=== PATIENT | female | born 1965 | race Two or more races ===

== ENCOUNTER 2018-02-19 15:55 | Inpatient (IN) | payer MEDICAID ==
[~2018-02-19] VITALS: Ht 152.4 cm; Wt 62.0 kg
[2018-02-19] MEDS ORDERED: SODIUM CHLORIDE 0.9% 500 ML IV ONE (16:00)
[2018-02-19 16:41] LABS: Eosinophils # (auto) 0 uL; Neutrophils # (auto) 3.9 uL
[2018-02-19 16:43] LABS: Basophils # (auto) 0.1 uL; Basophils % (auto) 1.1 % (0.0-2.0); Eosinophils % (auto) 0.4 % (0.0-7.0); Hematocrit 36.2 % (36.0-46.0); Hemoglobin 12.1 g/dL (12.2-16.2); Lymphocytes # (auto) 0.6 uL; Lymphocytes % (auto) 12.5 % (10.0-50.0); Mean Corpuscular Hemoglobin 34.3 pg (28.0-32.0); Mean Corpuscular Hgb Conc. 33.4 g/dL (32.0-36.0); Mean Corpuscular Volume 102.8 fL (80.0-100.0); Monocytes # (auto) 0.3 uL; Monocytes % (auto) 6.8 % (0.0-12.0); Neutrophils % (auto) 79.2 % (37.0-80.0); Platelet Count (auto) 244 10^3/uL (140-450); Red Blood Cells 3.52 10^6/uL (4.0-5.20); Red Cell Distribution Width 14.2 % (11.8-14.3)
[2018-02-19 16:58] LABS: Anion Gap 8 (5-15); Blood Urea Nitrogen 23 mg/dL (7-18); Calcium 8.4 mg/dL (8.5-10.1); Carbon Dioxide 27 mmol/L (21-32); Chloride 105 mmol/L (98-107); Potassium 4.1 mmol/L (3.5-5.1); Sodium 140 mmol/L (136-145)
[2018-02-19 17:01] LABS: Alanine Aminotransferase 18 U/L (13-56); Aspartate Aminotransferase 22 U/L (15-37); GFR African American 82 mL/min; GFR Non-African American 68 mL/min
[2018-02-19 17:06] LABS: Alkaline Phosphatase 73 U/L (45-117); Bilirubin, Total 0.2 mg/dL (0.2-1.0); Total Protein 7.8 g/dL (6.4-8.2)
[2018-02-19 17:11] LABS: Glucose 43 mg/dL (74-106)
[2018-02-19] MEDS ORDERED: D5W 5% 1,000 ML IV ONE (17:30)
[2018-02-19] MEDS ORDERED: DEXTROSE 50% SYRINGE 50 ML IV ONE (17:34)
[2018-02-19] MEDS ORDERED: DEXTROSE (50%) 50ML SYRG IV ONE (17:34)
[2018-02-19] MEDS ORDERED: HYDROcodone-ACET 5/325MG TAB PO PRN (19:15)
[2018-02-19] MEDS ORDERED: TEMAZEPAM 15 MG CAP PO PRN (19:15)
[2018-02-19] MEDS ORDERED: LACTULOSE 20Gm/30ML SOLN PO PRN (19:15)
[2018-02-19] MEDS ORDERED: MORPHINE SULFATE 8mg/ml INJ SDV IV PRN ×2 (19:15)
[2018-02-19] MEDS ORDERED: DEXTROSE (50%) 50ML SYRG IV PRN (19:15)
[2018-02-19] MEDS ORDERED: ACETAMINOPHEN 500 MG TAB PO PRN (19:15)
[2018-02-19] MEDS ORDERED: NITROGLYCERIN 0.4 MG SL TAB SL PRN (19:15)
[2018-02-19] MEDS ORDERED: LORazepam 0.5 MG TAB PO PRN (19:15)
[2018-02-19] MEDS ORDERED: PROMETHAZINE HCL 25 MG/ML 1ML IV PRN (19:15)
[2018-02-19] MEDS: ACCU-CHEK COMFORT CURVE STRIP VI SCH (19:44)
[2018-02-19] MEDS ORDERED: GASTROGRAFIN 30 ML SOL ONE (20:49)
[2018-02-19 21:20] VITALS: BP 130/63
[2018-02-20] VITALS (7 sets, daily range): BP systolic 88–127; BP diastolic 49–63
[2018-02-20] MEDS ORDERED: IBUP800T24 PO (00:16)
[2018-02-20] MEDS: ACCU-CHEK COMFORT CURVE STRIP VI SCH ×6 (00:20→20:18)
[2018-02-20 07:33] LABS: Cholesterol 170 mg/dL (< 200); HDL Cholesterol 57 mg/dL (40-59); LDL Cholesterol 93 mg/dL (< 100); Triglycerides 150 mg/dL (< 150)
[2018-02-20] MEDS: ENOXAPARIN SOD 40 MG/0.4 ML SYRINGE SC SCH (10:43)
[2018-02-20] MEDS ORDERED: GASTROGRAFIN 30 ML SOL ONE (11:19)
[2018-02-20] MEDS ORDERED: IOHEXOL 300 MG/ML 100ML BOTTLE IJ ONE (13:51)
[2018-02-21] MEDS: ACCU-CHEK COMFORT CURVE STRIP VI SCH ×6 (00:08→21:30)
[2018-02-21 05:00] VITALS: BP 81/54
[2018-02-21 08:00] VITALS: BP 93/56
[2018-02-21 09:00] VITALS: BP 93/56
[2018-02-21] MEDS: ENOXAPARIN SOD 40 MG/0.4 ML SYRINGE SC SCH (09:33)
[2018-02-21 09:47] LABS: Urine Bacteria FEW /hpf (None Seen); Urine Blood Negative /uL (Negative); Urine Specific Gravity 1.008 (1.001-1.035); Urine WBC 1 /hpf (0 - 5)
[2018-02-21 13:00] VITALS: BP 102/50
[2018-02-21 13:04] LABS: BUN/Creatinine Ratio 20.2; Calcium 9.3 mg/dL (8.5-10.1); Potassium 4.3 mmol/L (3.5-5.1)
[2018-02-21] MEDS ORDERED: AZITHROMYCIN 500MG/ 250ML 250 ML IV ONE (13:45)
[2018-02-21] MEDS ORDERED: cefTRIAXone 1GM/10ml IVPUSH 10 ML IV ONE (13:45)
[2018-02-21] MEDS: SODIUM CHLORIDE 0.9% 1,000 ML IV SCH (15:02)
[2018-02-21 17:00] VITALS: BP 98/57
[2018-02-21] MEDS ORDERED: ACCU-CHEK COMFORT CURVE STRIP VI SCH (17:00)
[2018-02-21 22:00] VITALS: BP 90/44
[2018-02-22 05:53] VITALS: BP 90/54
[2018-02-22 06:15] LABS: Basophils # (auto) 0 uL; Basophils % (auto) 1.1 % (0.0-2.0); Eosinophils # (auto) 0 uL; Eosinophils % (auto) 0.7 % (0.0-7.0); Hematocrit 35.3 % (36.0-46.0); Hemoglobin 11.8 g/dL (12.2-16.2); Lymphocytes # (auto) 0.8 uL; Lymphocytes % (auto) 18.3 % (10.0-50.0); Mean Corpuscular Hemoglobin 33.9 pg (28.0-32.0); Mean Corpuscular Hgb Conc. 33.4 g/dL (32.0-36.0); Mean Corpuscular Volume 101.6 fL (80.0-100.0); Monocytes # (auto) 0.4 uL; Monocytes % (auto) 8.4 % (0.0-12.0); Neutrophils % (auto) 71.5 % (37.0-80.0); Nucleated Red Blood Cells % 0.1 %; Platelet Count (auto) 233 10^3/uL (140-450); Red Blood Cells 3.48 10^6/uL (4.0-5.20); Red Cell Distribution Width 14.1 % (11.8-14.3); White Blood Cell 4.2 10^3/uL (4.4-10.8)
[2018-02-22] MEDS: SODIUM CHLORIDE 0.9% 1,000 ML IV SCH (06:24)
[2018-02-22] MEDS: ACCU-CHEK COMFORT CURVE STRIP VI SCH ×4 (06:24→21:56)
[2018-02-22 06:36] LABS: BUN/Creatinine Ratio 27.1; Calcium 8.5 mg/dL (8.5-10.1); Magnesium 2.4 mg/dL (1.6-2.6)
[2018-02-22 07:41] VITALS: BP 106/55
[2018-02-22 08:00] VITALS: BP 106/55
[2018-02-22] MEDS: cefTRIAXone 1GM/10ml IVPUSH 10 ML IV SCH (08:47)
[2018-02-22 09:20] VITALS: BP 106/55
[2018-02-22] MEDS: ENOXAPARIN SOD 40 MG/0.4 ML SYRINGE SC SCH (10:58)
[2018-02-22] MEDS: AZITHROMYCIN 500MG/ 250ML 250 ML IV SCH (10:59)
[2018-02-22 12:38] VITALS: BP 116/57
[2018-02-22 17:00] VITALS: BP 91/53
[2018-02-23 05:02] VITALS: BP 106/59
[2018-02-23] MEDS: SODIUM CHLORIDE 0.9% 1,000 ML IV SCH (05:20)
[2018-02-23] MEDS: ACCU-CHEK COMFORT CURVE STRIP VI SCH ×2 (06:52→11:24)
[2018-02-23 09:00] VITALS: BP 93/55
[2018-02-23] MEDS: AZITHROMYCIN 500MG/ 250ML 250 ML IV SCH (09:21)
[2018-02-23] MEDS: ENOXAPARIN SOD 40 MG/0.4 ML SYRINGE SC SCH (09:21)
[2018-02-23] MEDS: cefTRIAXone 1GM/10ml IVPUSH 10 ML IV SCH (09:21)
[2018-02-23 12:20] VITALS: BP 98/59
== END 2018-02-23 13:30 | disposition home or self-care (01) | DRG 720 ==
LOC: EDBD 15:55 → ER 15:56 → TELE 15:57 → TELE-EAST 21:20
PROVIDERS: ADMIT Internal Medicine; ATTEND Internal Medicine
DX: A41.9 Sepsis, unspecified organism (principal); N17.0 Acute kidney failure with tubular necrosis; G93.41 Metabolic encephalopathy; E11.649 Type 2 diabetes mellitus with hypoglycemia without coma; J18.9 Pneumonia, unspecified organism; Q90.9 Down syndrome, unspecified; N39.0 Urinary tract infection, site not specified; D37.8 Neoplasm of uncertain behavior of other specified digestive organs; E44.1 Mild protein-calorie malnutrition; Z83.3 Family history of diabetes mellitus; Z68.26 Body mass index [BMI] 26.0-26.9, adult
CPT/HCPCS: 36415; 70450; 71045; 71260; 73060; 74177; 78306; 80048; 80053; 80061; 81001; 82962; 83036; 83525; 83735; 84484; 85025; 85652; 87040; 87086; 87088; 87186; 93005; 96361; 96372; 96374; J7042

== ENCOUNTER 2022-09-08 21:24 | Emergency (ER) | payer MEDICAID ==
[~2022-09-08] VITALS: Ht 144.8 cm; Wt 110.0 kg
[~2022-09-08 21:24] MED LIST: IBUP800T27 PO
[2022-09-09] MEDS ORDERED: MORPHINE SULFATE 4 MG/ML SYR/VIAL IV ONE (01:00)
[2022-09-09] MEDS ORDERED: ONDANSETRON HCL 4 MG/2 ML VIAL IV ONE (01:00)
[2022-09-09 01:46] LABS: Albumin 3.1 g/dL (3.4-5.0); BUN/Creatinine Ratio 27.7; Calcium 8.6 mg/dL (8.5-10.1); Magnesium 2.3 mg/dL (1.6-2.6); Potassium 4.6 mmol/L (3.5-5.1)
[2022-09-09 01:49] LABS: Bilirubin, Total 0.4 mg/dL (0.2-1.0); Eosinophils # (auto) 0 10 ^3/uL (0-0.8); Hemoglobin 10.9 g/dL (12.2-16.2); Lymphocytes # (auto) 0.9 10 ^3/uL (0.4-5.4); Mean Corpuscular Hemoglobin 33.9 pg (28.0-32.0); Monocytes # (auto) 0.4 10 ^3/uL (0-1.3); Total Protein 7.4 g/dL (6.4-8.2); White Blood Cell 4.1 10^3/uL (4.4-10.8)
[2022-09-09 01:51] LABS: Basophils # (auto) 0 10 ^3/uL (0-0.2); Basophils % (auto) 1.1 % (0.0-2.0); Eosinophils % (auto) 0.6 % (0.0-7.0); Hematocrit 32.9 % (36.0-46.0); Lymphocytes % (auto) 22.9 % (10.0-50.0); Mean Corpuscular Hgb Conc. 33.3 g/dL (32.0-36.0); Mean Corpuscular Volume 101.8 fL (80.0-100.0); Monocytes % (auto) 9.1 % (0.0-12.0); Neutrophils # (auto) 2.7 10 ^3/uL (1.6-8.6); Neutrophils % (auto) 66.3 % (37.0-80.0); Red Blood Cells 3.23 10^6/uL (4.0-5.20); Red Cell Distribution Width 14.3 % (11.8-14.3)
[2022-09-09 02:28] LABS: Urine Bacteria NONE SEEN /hpf (None Seen); Urine Blood Negative /uL (Negative); Urine Mucus FEW (None Seen); Urine Specific Gravity 1.024 (1.001-1.035); Urine WBC 3 /hpf (0 - 5)
[2022-09-09 06:45] VITALS: BP 124/61
== END 2022-09-09 07:02 | disposition home or self-care (01) ==
LOC: ER 21:25
DX: K43.9 Ventral hernia without obstruction or gangrene (principal); R10.13 Epigastric pain; D75.89 Other specified diseases of blood and blood-forming organs; D72.819 Decreased white blood cell count, unspecified; Q90.9 Down syndrome, unspecified; E11.9 Type 2 diabetes mellitus without complications; Z90.49 Acquired absence of other specified parts of digestive tract
CPT/HCPCS: 36415; 74177; 80053; 81001; 83605; 83690; 83735; 84484; 85025; 93005

== ENCOUNTER 2024-09-28 17:26 | Inpatient (IN) | payer MEDICAID ==
[~2024-09-28] VITALS: Ht 142.2 cm; Wt 56.7 kg
[~2024-09-28 17:26] MED LIST changes: +ALEN70TA74 PO; +CEPH500C PO; +IBUP-1456 PO; -IBUP800T27 PO; +LORA-622 PO; +QUET25TA37 PO
--- NOTE | 2024-09-28 19:44 | ED.PDOC ---
History of Present Illness HPI Comments 58-year-old female who comes in with chief complaint of a UTI and possible sepsis. The patient was recently diagnosed with a UTI but she was not able to get the medications. Today, the patient had a telemedicine visit and was told because her heart rate was somewhat elevated that 911 should be called. The nicolasa serrato was transported to our facility and had stable vital signs upon arrival. According to the family, they just picked up the medication for the UTI today. There has been no fever or chills. The patient has a history of Down syndrome and is not communicative Chief Complaint: Abnormal LAB's Time Seen by MD: 17:28 Primary Care Provider: UNKNOWN Reviewed Notes: Nurses Notes, Supervisor Core Shop Notes, Medications, Allergies (No allergies to medications) Allergies: Coded Allergies: NO KNOWN ALLERGIES (Unverified , 01/07/10) Home Meds Reported Medications Ibuprofen (Ibuprofen) 800 Mg Tab, 800 MG PO, MG 02/20/18 Information Source: Relative, Emergency Med Personnel Mode of Arrival: EMS Severity: Moderate Timing: Hours Duration: Since onset Prehospital treatment: None Associated signs and symptoms Possible sepsis Past Medical History PAST MEDICAL HISTORY: Dementia, DM, Thyroid Past Medical History (Other): Down syndrome, abdominal hernia Surgical History: Cholecystectomy, Hernia Repair INFORMIX DEVELOPER History: No Pertinent INFORMIX DEVELOPER History Family History Family History: Family hx of DM, Family hx of heart sana Social History Smoker: Non-Smoker Alcohol: Denies ETOH Use Drugs: Denies Drug Use Lives In: Home Constitutional: reports: weakness; denies: chills, diaphoresis, fatigue, fever, malaise, sweats, others EENTM: denies: blurred vision, double vision, ear bleeding, ear discharge, ear drainage, ear pain, ear ringing, eye pain, eye redness, hearing loss, mouth pa in, mouth swelling, nasal discharge, nose bleeding, nose congestion, nose pain, photophobia, tearing, throat pain, throat swelling, voice changes, others Respiratory: denies: cough, hemoptysis, orthopnea, SOB at rest, shortness of breath, SOB with excertion, stridor, wheezing, others Cardiovascular: denies: chest pain, dizzy spells, diaphoresis, Dyspnea on exertion, edema, irregular heart beat, left arm pain, lightheadedness, palpitations, PND, syncope, others Gastrointestinal: denies: abdomen distended, abdominal pain, blood streaked bowels, constipated, diarrhea, dysphagia, difficulty swallowing, hematemesis, melena, nausea, poor appetite, poor fluid intake, rectal bleeding, rectal pain, vomiting, others Genitourinary: denies: abnormal vagina bleeding, burning, dyspareunia, dysuria, flank pain, frequency, hematuria, incontinence, pain, , vagina discharge, urgency, others Neurological: denies: dizziness, fainting, headache, left sided numbness, left sided weakness, numbness, paresthesia, pre-existing deficit, right sided numbness, right sided weakness, seizure, speech problems, tingling, tremors, weakness, others Musculoskeletal: denies: back pain, gout, joint pain, joint swelling, muscle pain, muscle stiffness, neck pain, others Integumetry: denies: bruises, change in color, change in hair/nails, dryness, laceration, lesions, lumps, rash, wounds, others Allergic/Immunocompromised: denies: Difficulty Healing, Frequent Infections, Hives, Itching, others Hematologic/Lymphatic: denies: anemia, blood clots, easy bleeding, easy bruising, swollen glands, others Endocrine: denies: excessive hunger, excessive sweating, excessive thirst, excessive urination, flushing, intolerance to cold, intolerance to heat, unexplained weight gain, unexplained weight loss, others Psychiatric: denies: anxiety, bipolar disorder, depression, hopeless, panic disorder, schizophrenia, sleepless, suicidal, others Physical Exam General Appearance: Moderate Distress HEENT: Normal ENT Inspection, Pharynx Normal, TMs Normal Neck: Full Range of Motion, Non-Tender, Normal, Normal Inspection Respiratory: Chest Non-Tender, Lungs Clear, No Accessory Muscle Use, No Respiratory Distress, Normal Breath Sounds Cardiovascular: No Edema, No JVD, No Murmur, No Gallop, Normal Peripheral Pulses, Regular Rate/Rhythm Breast Exam: Deferred Gastrointestinal: No Organomegaly, Non Tender, No Pulsatile Mass, Normal Bowel Sounds, Soft Genitalia: Deferred Pelvic: Deferred Rectal: Deferred Extremities: No calf tenderness, Normal capillary refill, Normal inspection, Normal range of motion, Non-tender, No pedal edema Musculoskeletal : Apperance: Normal Neurologic: extrusion die template maker II-XII nml as Tested, Motor Weakness, Normal Affect, Normal Mood, No Sensory Deficits Cerebellar Function: Unable to Test Reflexes: Normal Skin: Dry, Normal Color, Warm Lymphatic: No Adenopathy Was a procedure done? Was a procedure done?: No Differential Dx Considerations may include: Sepsis, UTI, generalized weakness X-Ray, Labs, Meds, VS Vital Signs Date Time Temp Pulse Resp B/P (MAP) Pulse Ox O2 Delivery O2 Flow Rate FiO2 09/28/24 18:33 98.2 70 16 110/58 (75) 96 Lab Test 09/28/24 19:30 Range/Units White Blood Count 8.4 4.4-10.8 10^3/uL Red Blood Count 3.24 L 4.0-5.20 10^6/uL Hemoglobin 10.2 L 12.2-16.2 g/dL Hematocrit 31.0 L 36.0-46.0 % Mean Corpuscular Volume 95.6 80.0-100.0 fL Mean Corpuscular Hemoglobin 31.4 28.0-32.0 pg Mean Corpuscular Hemoglobin Concent 32.9 32.0-36.0 g/dL Red Cell Distribution Width 18.8 H 11.8-14.3 % Platelet Count 372 140-450 10^3/uL Mean Platelet Volume 8.4 6.9-10.8 fL Neutrophils (%) (Auto) 80.1 H 37.0-80.0 % Lymphocytes (%) (Auto) 13.9 10.0-50.0 % Monocytes (%) (Auto) 5.3 0.0-12.0 % Eosinophils (%) (Auto) 0.1 0.0-7.0 % Basophils (%) (Auto) 0.6 0.0-2.0 % Neutrophils # (Auto) 6.7 1.6-8.6 10 ^3/uL Lymphocytes # (Auto) 1.2 0.4-5.4 10 ^3/uL Monocytes # (Auto) 0.4 0-1.3 10 ^3/uL Eosinophils # (Auto) 0 0-0.8 10 ^3/uL Basophils # (Auto) 0 0-0.2 10 ^3/uL Nucleated Red Blood Cells 0.1 % Sodium Level 136 136-145 mmol/L Potassium Level 3.8 3.5-5.1 mmol/L Chloride Level 101 98-107 mmol/L Carbon Dioxide Level 27 20-31 mmol/L Anion Gap 8 5-15 Blood Urea Nitrogen 16 9-23 mg/dL Creatinine 1.01 0.550-1.02 mg/dL Glomerular Filtration Rate Calc 64 >90 mL/min BUN/Creatinine Ratio 15.8 10.0-20.0 Serum Glucose 128 H 74-106 mg/dL Lactic Acid Level 2.4 *H 0.4-2.0 mmol/L Calcium Level 9.6 8.7-10.4 mg/dL Patient's CBC and chemistry panel are within normal limits except for hyperglycemia at 128 The lactic acid level is 2.4 Blood cultures were drawn on this patient The patient will be started on Rocephin 1 g IV piggyback The patient was admitted Time of 1ST Reevaluation: 19:43 Reevaluation 1ST: Improved Patient Education/Counseling: Other (The patient has Down syndrome) Family Education/Counseling: Diagnosis, Treatment, Prognosis Departure 1 Departure Time of Disposition: 21:24 Impression: Primary Impression: Sepsis secondary to UTI Disposition: ADMITTED INPATIENT Admit to: Med Surg Condition: Fair Critical Care Note Critical Care Time?: No Stability Stability form required: Yes Unstable for transfer: ED Physician Assesment (Clinical assesment) Heart Score Heart Score: Heart Score Response (Comments) Value History N/A 0 EKG N/A 0 Age N/A 0 Risk Factors N/A 0 Troponin N/A 0 Total 0 BRAYAN MONREAL MD Sep 28, 2024 19:44
[2024-09-28 19:48] LABS: Basophils # (auto) 0 10 ^3/uL (0-0.2); Basophils % (auto) 0.6 % (0.0-2.0); Eosinophils # (auto) 0 10 ^3/uL (0-0.8); Eosinophils % (auto) 0.1 % (0.0-7.0); Hemoglobin 10.2 g/dL (12.2-16.2); Lymphocytes # (auto) 1.2 10 ^3/uL (0.4-5.4); Lymphocytes % (auto) 13.9 % (10.0-50.0); Mean Corpuscular Hemoglobin 31.4 pg (28.0-32.0); Mean Corpuscular Hgb Conc. 32.9 g/dL (32.0-36.0); Mean Corpuscular Volume 95.6 fL (80.0-100.0); Monocytes # (auto) 0.4 10 ^3/uL (0-1.3); Monocytes % (auto) 5.3 % (0.0-12.0); Neutrophils # (auto) 6.7 10 ^3/uL (1.6-8.6); Neutrophils % (auto) 80.1 % (37.0-80.0); Nucleated Red Blood Cells % 0.1 %; Platelet Count (auto) 372 10^3/uL (140-450); Red Blood Cells 3.24 10^6/uL (4.0-5.20); Red Cell Distribution Width 18.8 % (11.8-14.3); White Blood Cell 8.4 10^3/uL (4.4-10.8)
[2024-09-28 20:00] LABS: Anion Gap 8 (5-15); Carbon Dioxide 27 mmol/L (20-31); Chloride 101 mmol/L (98-107); Potassium 3.8 mmol/L (3.5-5.1); Sodium 136 mmol/L (136-145)
[2024-09-28 20:01] LABS: Calcium 9.6 mg/dL (8.7-10.4)
[2024-09-28 20:06] LABS: BUN/Creatinine Ratio 15.8 (10.0-20.0); Blood Urea Nitrogen 16 mg/dL (9-23)
[2024-09-28 20:10] LABS: Glucose 128 mg/dL (74-106)
[2024-09-28 20:14] LABS: Lactic Acid w/Reflex 2.4 mmol/L (0.4-2.0)
[2024-09-28 21:25] VITALS: PULSE 88; RESP 16; O2SAT 92
[2024-09-28] MEDS: SODIUM CHLORIDE 0.9% 500 ML IV ONE (21:56)
[2024-09-28] MEDS: cefTRIAXone 1GM/50ML D5W 50 ML IV ONE (21:57)
[2024-09-28] MEDS: ACETAMINOPHEN 325 MG TAB PO ONE (22:08)
--- NOTE | 2024-09-28 22:13 | DVH ---
CLINICAL HISTORY: aloc TECHNIQUE: Helical imaging carried out from skull base to vertex without intravenous contrast. This e xam was performed according to our departmental dose optimization program. Up-to-date CT equipment an d radiation dose reduction techniques are utilized as appropriate. CTDIVol: [CTDIvol] mGy DLP: 1015.98 mGy-cm WID: COMPARISON: None FINDINGS: Generalized cerebral volume loss with concordant prominence of the subarachnoid spaces and ventricles . Moderate patchy low attenuation throughout the cerebral white matter consistent with nonspecific wh ite matter disease. There is no midline shift or mass effect. The antony white matter interfaces are maintained. The basal cisterns are patent. There is no evidence of acute intracranial hemorrhage or extra-axial fluid bert ection. Bilateral mastoid air cell effusions. The visualized paranasal sinuses are clear. Prior bila teral ocular lens replacements. There are partially imaged periapical lucencies within multiple maxil genoveva teeth. IMPRESSION: 1. No acute intracranial abnormality. 2. Generalized cerebral volume loss and moderate chronic microvascular ischemic change. 3. Partially imaged periapical lucency/periodontal disease in multiple maxillary teeth. 4. Bilateral mastoid air cell effusions.
[2024-09-28] MEDS ORDERED: ACETAMINOPHEN 325 MG TAB PO PRN (22:15)
[2024-09-28] MEDS ORDERED: ONDANSETRON HCL 4 MG/2 ML VIAL IV PRN (22:15)
[2024-09-28] MEDS: SODIUM CHLORIDE 0.9% 1,350 ML IV ONE (22:56)
--- NOTE | 2024-09-28 23:12 | DVHHPRES ---
History of Present Illness Resident Creating Document: OTONIEL ACOSTA RESIDENT Reason for Visit: Dysuria History of Present Illness This is a 58-year-old female who comes in with chief complaint of dysuria. She has a past medical history relevant for this down syndrome, hypothyroidism, dementia. Family members stated that the patient heart rate has been elevated, mild intermittent abdominal pain, and her urine has been malodorous. Denied any chills, fevers, general malaise. Family members also stated that they have been having difficult time taking care of the patient since she is bed-bound and we would like further assistance from social work nurse. They also state that the patient has been declining progressively for the last couple of months every night in regards to her motor function, they state that she is currently at her neurological baseline. Endocrine: Hypothyroidism Smoke: No ALCOHOL: none Drugs: None Lives: with Family Review of Systems Constitutional: No: Fever, Chills, Sweats, Weakness, Malaise, Other Eyes: No: Pain, Vision change, Conjunctivae inflammation, Eyelid inflammation, Other, Redness ENT: No: Ear pain, Ear discharge, Nose pain, Nose discharge, Nose congestion, Mouth pain, Mouth swelling, Throat pain, Throat swelling, Other Respiratory: No: Cough, Dry, Shortness of breath, SOB with excertion, Wheezing, Hemoptysis, Pleuritic Pain, Sputum, Wheezing, Other Cardiovascular: No: Chest Pain, Palpitations, Orthopnea, Paroxysmal Noc. Dyspnea, Edema, Lt Headedness, Other Gastrointestinal: No: Nausea, Vomiting, Abdominal Pain, Diarrhea, Constipation, Melena, Hematochezia, Other Genitourinary: Dysuria, Frequency; No Incontinence, No Hematuria, No Retention, No Other Musculoskeletal: No: other, neck pain, shoulder pain, arm pain, back pain, hand pain, leg pain, foot pain Skin: No: Rash, Lesions, Jaundice, Bruising, Other Neurological: No: Weakness, Numbness, Incoordination, Change in speech, Confusion, Seizures, Other Allergies: Coded Allergies: NO KNOWN ALLERGIES (Unverified , 01/07/10) Medications Current Medications Medications Dose Ordered Sig/Neisha Route Start Time Stop Time Status Last Admin Dose Admin Ceftriaxone Sodium 50 ml @ 100 mls/hr DAILY@09 IV 09/29/24 09:00 Acetaminophen 650 mg Q6HP PRN PO 09/28/24 22:15 Levothyroxine Sodium 25 mcg QAM@0600 PO 09/29/24 06:00 Quetiapine Fumarate 25 mg HS PO 09/29/24 22:00 Ondansetron HCl 4 mg Q4HPRN PRN IV 09/28/24 22:15 Exam Vital Signs Vital Signs Date Time Temp Pulse Resp B/P (MAP) Pulse Ox O2 Delivery O2 Flow Rate FiO2 09/28/24 22:08 100.3 09/28/24 21:25 88 16 112/57 (75) 92 General Appearance: Alert, Cooperative, No acute distress HEENT: Atraumatic, PERRLA Respiratory: Clear to auscultation, Normal air movement Cardiovascular: Regular rate, Normal S1, Normal S2, No murmurs Abdominal: Normal bowel sounds, Soft, No tenderness, Other (Abdominal hernia, reducible) Extremities: No clubbing, No cyanosis, No edema, Normal pulses Skin: No rashes (multiple pressure ulcers stage one, mainly in feet, ankle and sacral area) Neuro: Normal gait, Normal speech, Strength at 5/5 X4 ext Psych/Mental Status: Mental status NL, Mood NL Labs/Xrays Labs Test 09/28/24 21:28 09/28/24 19:30 Range/Units Lactic Acid Level 1.4 0.4-2.0 mmol/L White Blood Count 8.4 4.4-10.8 10^3/uL Red Blood Count 3.24 L 4.0-5.20 10^6/uL Hemoglobin 10.2 L 12.2-16.2 g/dL Hematocrit 31.0 L 36.0-46.0 % Mean Corpuscular Volume 95.6 80.0-100.0 fL Mean Corpuscular Hemoglobin 31.4 28.0-32.0 pg Mean Corpuscular Hemoglobin Concent 32.9 32.0-36.0 g/dL Red Cell Distribution Width 18.8 H 11.8-14.3 % Platelet Count 372 140-450 10^3/uL Mean Platelet Volume 8.4 6.9-10.8 fL Neutrophils (%) (Auto) 80.1 H 37.0-80.0 % Lymphocytes (%) (Auto) 13.9 10.0-50.0 % Monocytes (%) (Auto) 5.3 0.0-12.0 % Eosinophils (%) (Auto) 0.1 0.0-7.0 % Basophils (%) (Auto) 0.6 0.0-2.0 % Neutrophils # (Auto) 6.7 1.6-8.6 10 ^3/uL Lymphocytes # (Auto) 1.2 0.4-5.4 10 ^3/uL Monocytes # (Auto) 0.4 0-1.3 10 ^3/uL Eosinophils # (Auto) 0 0-0.8 10 ^3/uL Basophils # (Auto) 0 0-0.2 10 ^3/uL Nucleated Red Blood Cells 0.1 % Sodium Level 136 136-145 mmol/L Potassium Level 3.8 3.5-5.1 mmol/L Chloride Level 101 98-107 mmol/L Carbon Dioxide Level 27 20-31 mmol/L Anion Gap 8 5-15 Blood Urea Nitrogen 16 9-23 mg/dL Creatinine 1.01 0.550-1.02 mg/dL Glomerular Filtration Rate Calc 64 >90 mL/min BUN/Creatinine Ratio 15.8 10.0-20.0 Serum Glucose 128 H 74-106 mg/dL Calcium Level 9.6 8.7-10.4 mg/dL Assessment/Plan Assessment/Plan #UTI # lactic acidosis #sepsis possibly due to uti Rocephin 1g IV qd Pending urinalysis, urine culture, blood culture IV fluids were given ordered ct abdomen # anemia normocytic normochromic # down syndrome # hypothyroidism Continue levothyroxine 25 mcg p.o. q.d. # abdominal hernia, reduced Monitor # hyperglycemia Ordered A1c #bedbound multiple chronic lesions on pressure points, stage 1 wound consult Goals of care discussed for 30 minutes. Full code Case was discussed with Dr. Syed Plan discussed with: Patient My Orders Orders - OTONIEL ACOSTA RESIDENT Procedure Category Date Status Time Admit ADMIT 09/28/24 Transmitted 21:41 Notify Of Changes MAURO 09/28/24 In Process From Base 21:41 Urine Bacterial JACKSON 09/28/24 Logged Culture 21:41 Ceftriaxone 1gm/50ml PHA 09/29/24 In Process D5w (Rocephin) 09:[address] 09/28/24 Resulted 21:41 Complete Blood Count LAB 09/29/24 Verified 04:00 Basic Metabolic Panel LAB 09/29/24 Verified 04:00 Acetaminophen Tablet PHA 09/28/24 In Process (Tylenol Tablet) 22:15 Mechanical Soft Diet DIET 09/29/24 Transmitted Breakfast Levothyroxine Tablet PHA 09/29/24 In Process (Synthroid Tablet) 06:00 Quetiapine Fumarate PHA 09/29/24 In Process Tablet (Seroquel Tab 22:00 Ondansetron Hcl PHA 09/28/24 In Process (Zofran) 22:15 Date of Service: Sep 28, 2024 Billing Provider: AURORA SYED MD Common Visit Codes: [id number] INP/OBS CARE (HIGH) OTONIEL ACOSTA RESIDENT Sep 28, 2024 23:12 AURORA SYED MD Sep 29, 2024 11:40
[2024-09-29] VITALS (8 sets, daily range): BP systolic 94–118; BP diastolic 41–79; PULSE 60–84; RESP 16–18; TEMP 97.2–98.4; O2SAT 92–99
[2024-09-29] MEDS ORDERED: LEVO25TA6 PO (01:23)
[2024-09-29] MEDS: LEVOTHYROXINE SODIUM 25 MCG TAB PO SCH (05:46)
[2024-09-29 07:33] LABS: Basophils # (auto) 0 10 ^3/uL (0-0.2); Eosinophils # (auto) 0 10 ^3/uL (0-0.8); Eosinophils % (auto) 0.1 % (0.0-7.0); Hematocrit 26.4 % (36.0-46.0); Hemoglobin 8.7 g/dL (12.2-16.2); Lymphocytes % (auto) 19.3 % (10.0-50.0); Mean Corpuscular Hemoglobin 31.7 pg (28.0-32.0); Mean Corpuscular Volume 96.1 fL (80.0-100.0); Monocytes # (auto) 0.3 10 ^3/uL (0-1.3); Monocytes % (auto) 6.4 % (0.0-12.0); Neutrophils # (auto) 3.7 10 ^3/uL (1.6-8.6); Neutrophils % (auto) 73.2 % (37.0-80.0); Platelet Count (auto) 288 10^3/uL (140-450); Red Blood Cells 2.75 10^6/uL (4.0-5.20); Red Cell Distribution Width 19.4 % (11.8-14.3); White Blood Cell 5.1 10^3/uL (4.4-10.8)
[2024-09-29 07:45] LABS: Potassium 3.6 mmol/L (3.5-5.1); Sodium 138 mmol/L (136-145)
[2024-09-29 07:46] LABS: Anion Gap 6 (5-15); Carbon Dioxide 23 mmol/L (20-31)
[2024-09-29 07:51] LABS: Blood Urea Nitrogen 9 mg/dL (9-23); Calcium 8.6 mg/dL (8.7-10.4); Chloride 109 mmol/L (98-107); Glucose 108 mg/dL (74-106)
--- NOTE | 2024-09-29 08:41 | DVH ---
Exam: CT CT AB PEL WO CON-NO ORAL OR IV History: abdominal pain Comparison Study: CT scan of the abdomen pelvis performed on 09/09/2022 TECHNIQUE: Multidetector CT of the abdomen and pelvis was performed from lung bases to ischial tubero sities. Imaging was performed without IV contrast using axial images. Coronal and sagittal reformats were obtained from the axial data set by the technologist. Radiation Dose Information: CT Dose: CTDI volume is 14.0 mGy. Dose-length product is 597.81 mGy*cm FINDINGS: Evaluation of solid organs is limited due to lack of intravenous contrast use. Findings: Lung Bases: Left basilar atelectasis. Normal heart size. No pleural or pericardial effusion. Liver: The liver is normal in size. No focal lesions. Gallbladder and Biliary Tree: Gallbladder is unremarkable. No biliary ductal dilatation. Spleen: Unremarkable Pancreas: The pancreas is grossly normal in appearance. Adrenal Glands: Unremarkable Kidneys: Kidneys are grossly normal without calculi or hydronephrosis. GI Tract: The stomach is grossly normal in appearance. Small bowel is normal in caliber. There is an umbilical hernia containing loops of stool filled colon and peritoneal fat. The fascial defect measu res 2.5 cm in diameter. No upstream dilatation of the colon. The appendix is not visualized, however no evidence of acute inflammatory changes are present in the right lower quadrant. Peritoneal cavity: No pneumoperitoneum. No ascites. Lymphadenopathy: No mesenteric, retroperitoneal or periportal lymphadenopathy. Abdominal Wall and Mesentery: Unremarkable. Vasculature: The visualized abdominal aorta is normal in size and caliber. Evaluation of abdominal a nd pelvic vessels is limited due to lack of intravenous contrast. Pelvic Organs: Unremarkable Urinary Bladder: Grossly unremarkable for degree of distention. Musculoskeletal: No aggressive focal bony lesions, acute fractures or dislocation. Degenerative suero es in the lumbar spine and bilateral hips. Soft tissues: Unremarkable IMPRESSION: 1. Umbilical hernia containing colonic bowel loops and peritoneal fat. Mild fat stranding within the hernia sac. No bowel obstruction. Radiation optimization: All CT scans at this facility use at least one of these dose optimization hood hniques: automated exposure control mA and/or kV adjustment per patient size (includes targeted exam s where dose is matched to clinical indication) or iterative reconstruction.
[2024-09-29] MEDS: cefTRIAXone 1GM/50ML D5W 50 ML IV SCH (09:48)
--- NOTE | 2024-09-29 12:13 | DVHPN2 ---
Reviewed: Care Plan, H&P, Labs, Medications, Previous Orders, Radiology Changes from previous H/P or p: No Changes Eyes: No Pain, No Vision change, No Conjunctivae inflammation, No Eyelid inflammation, No Other, No Redness ENT: No Ear pain, No Ear discharge, No Nose pain, No Nose discharge, No Nose congestion, No Mouth pain, No Mouth swelling, No Throat pain, No Throat swelling, No Other Cardiovascular: No Chest Pain, No Palpitations, No Orthopnea, No Paroxysmal Noc. Dyspnea, No Edema, No Lt Headedness, No Other Respiratory: No Cough, No Dry, No Shortness of breath, No SOB with excertion, No Wheezing, No Hemoptysis, No Pleuritic Pain, No Sputum, No Other Gastrointestinal: No Nausea, No Vomiting, No Abdominal Pain, No Diarrhea, No Constipation, No Melena, No Hematochezia, No Other Genitourinary: Dysuria, Frequency; No Incontinence, No Hematuria, No Retention, No Other Musculoskeletal: No other, No neck pain, No shoulder pain, No arm pain, No back pain, No hand pain, No leg pain, No foot pain Skin: No Rash, No Lesions, No Jaundice, No Bruising, No Other Objective Vitals Vital Signs Date Time Temp Pulse Resp B/P (MAP) Pulse Ox O2 Delivery O2 Flow Rate FiO2 09/29/24 08:52 98.3 60 18 106/79 (88) 99 98.3 09/29/24 08:00 Room Air* 0 21 Intake/Output Intake and Output 09/29/24 07:00 Intake Total 2050 ml Balance 2050 ml Intake Oral 150 ml IV Total 1900 ml # Voids 1 # Bowel Movements 1 Medications Current Medications Medications Dose Ordered Sig/Neisha Route Start Time Stop Time Status Last Admin Dose Admin Ceftriaxone Sodium 50 ml @ 100 mls/hr DAILY@09 IV 09/29/24 09:00 09/29/24 09:48 100 MLS/HR Acetaminophen 650 mg Q6HP PRN PO 09/28/24 22:15 Levothyroxine Sodium 25 mcg QAM@0600 PO 09/29/24 06:00 09/29/24 05:46 25 MCG Quetiapine Fumarate 25 mg HS PO 09/29/24 22:00 Ondansetron HCl 4 mg Q4HPRN PRN IV 09/28/24 22:15 Laboratory Results Laboratory Tests 1/16/25 07:09 Chemistry Test 09/28/24 19:30 09/29/24 07:09 Calcium Level 9.6 mg/dL (8.7-10.4) 8.6 mg/dL (8.7-10.4) L HgA1c, TSH Test 09/29/24 07:09 Hemoglobin A1c 5.8 % A1C (<5.7) H Labs and/or images reviewed: Labs reviewed by me, Image(s) reviewed by me Assessment/Plan Assessment/Plan Sepsis secondary to urinary tract infection: Blood cultures urine cultures Acute urinary tract infection: Rocephin Hypothyroidism: Synthroid History of down syndrome Dementia Chronically bedridden Moderate malnutrition Time spent 55 minutes Patient is full code Advanced care planning time 20 minutes Plan discussed with: Patient My Orders Orders - CHEO MORAES MD Procedure Category Date Status Time Communication Order ORDERS 09/29/24 Verified 12:11 Date of Service: Sep 29, 2024 Billing Provider: CHEO MORAES MD Common Visit Codes: [id number] INP/OBS CARE(HIGH) Secondary Visit Codes: [id number] CARE PLAN 30 MINUTES CHEO MORAES MD Sep 29, 2024 12:13
[2024-09-29] MEDS ORDERED: LORazepam 2MG/ML-1ML VIAL IV PRN (13:30)
[2024-09-29] MEDS: SODIUM CHLORIDE 0.9% 1,000 ML IV ONE ×2 (14:52→14:53)
[2024-09-29] MEDS: QUEtiapine FUMARATE 25 MG TAB PO SCH (21:18)
[2024-09-30 01:18] VITALS: BP 104/80; PULSE 67; RESP 18; TEMP 97.7; O2SAT 95
[2024-09-30 05:09] VITALS: BP 117/65; PULSE 69; RESP 19; TEMP 98; O2SAT 96
--- NOTE | 2024-09-30 09:57 | DVHPN2 ---
Reviewed: Care Plan, H&P, Labs, Medications, Previous Orders, Radiology Changes from previous H/P or p: No Changes Eyes: No Pain, No Vision change, No Conjunctivae inflammation, No Eyelid inflammation, No Other, No Redness ENT: No Ear pain, No Ear discharge, No Nose pain, No Nose discharge, No Nose congestion, No Mouth pain, No Mouth swelling, No Throat pain, No Throat swelling, No Other Cardiovascular: No Chest Pain, No Palpitations, No Orthopnea, No Paroxysmal Noc. Dyspnea, No Edema, No Lt Headedness, No Other Respiratory: No Cough, No Dry, No Shortness of breath, No SOB with excertion, No Wheezing, No Hemoptysis, No Pleuritic Pain, No Sputum, No Other Gastrointestinal: No Nausea, No Vomiting, No Abdominal Pain, No Diarrhea, No Constipation, No Melena, No Hematochezia, No Other Genitourinary: Dysuria, Frequency; No Incontinence, No Hematuria, No Retention, No Other Musculoskeletal: No other, No neck pain, No shoulder pain, No arm pain, No back pain, No hand pain, No leg pain, No foot pain Skin: No Rash, No Lesions, No Jaundice, No Bruising, No Other Objective Vitals Vital Signs Date Time Temp Pulse Resp B/P (MAP) Pulse Ox O2 Delivery O2 Flow Rate FiO2 09/30/24 05:09 98.0 69 19 117/65 (82) 96 98.0 09/29/24 20:00 Room Air* 0 21 Intake/Output Intake and Output 09/30/24 07:00 Intake Total 1760 ml Balance 1760 ml Intake Oral 710 ml IV Total 1050 ml # Voids 4 # Bowel Movements 3 Medications Current Medications Medications Dose Ordered Sig/Neisha Route Start Time Stop Time Status Last Admin Dose Admin Ceftriaxone Sodium 50 ml @ 100 mls/hr DAILY@09 IV 09/29/24 09:00 09/29/24 09:48 100 MLS/HR Acetaminophen 650 mg Q6HP PRN PO 09/28/24 22:15 Levothyroxine Sodium 25 mcg QAM@0600 PO 09/29/24 06:00 09/30/24 05:09 25 MCG Quetiapine Fumarate 25 mg HS PO 09/29/24 22:00 09/29/24 21:18 25 MG Ondansetron HCl 4 mg Q4HPRN PRN IV 09/28/24 22:15 Lorazepam 1 mg Q8HP PRN IV 09/29/24 13:30 Laboratory Results Laboratory Tests 09/29/24 07:09 Microbiology Microbiology Date/Time Source Procedure Growth Status 09/28/24 19:30 Blood Blood Culture - Preliminary NO GROWTH AFTER 24 HOURS OF INCUBATION. Resulted Labs and/or images reviewed: Labs reviewed by me, Image(s) reviewed by me Assessment/Plan Assessment/Plan Sepsis secondary to urinary tract infection: Blood cultures negative, urine cultures pending Acute urinary tract infection: Rocephin Hypothyroidism: Synthroid History of down syndrome Dementia Chronically bedridden Moderate malnutrition Time spent 45 minutes Patient is full code Advanced care planning time 20 minutes Family thinking of placing the patient on hospice Plan discussed with: Patient My Orders Orders - CHEO MORAES MD Procedure Category Date Status Time Communication Order ORDERS 09/29/24 Transmitted 12:11 Blood Culture JACKSON 09/29/24 In Process 13:08 Lorazepam 2mg/Ml Inj PHA 09/29/24 In Process (Ativan Inj) 13:30 * Accounting Representative CONS 09/29/24 Transmitted Consult Date of Service: Sep 30, 2024 Billing Provider: CHEO MORAES MD Common Visit Codes: [id number] INP/OBS CARE(HIGH) CHEO MORAES MD Sep 30, 2024 09:57
[2024-09-30 13:00] VITALS: BP 87/35; PULSE 72; RESP 16; TEMP 97.7; O2SAT 95
[2024-09-30 17:00] VITALS: BP 108/56; PULSE 64; RESP 16; TEMP 97.9; O2SAT 96
[2024-09-30 21:00] VITALS: BP 116/53; PULSE 74; RESP 18; TEMP 97.5; O2SAT 95
[2024-10-01 05:00] VITALS: BP 90/39; PULSE 49; RESP 17; TEMP 98.8; O2SAT 93
[2024-10-01 08:00] VITALS: PULSE 65; RESP 17; O2SAT 98
[2024-10-01 08:28] VITALS: BP 113/65; PULSE 65; RESP 17; TEMP 97; O2SAT 98
[2024-10-01] MEDS ORDERED: CIPR-173 PO (08:49)
--- NOTE | 2024-10-01 09:29 | DVHDS2 ---
Discharge Summary Date of Admission Sep 28, 2024 at 21:41 Date of Discharge: Oct 01, 2024 Admitting Diagnosis Altered mental status Wounds: None Labs/Diagnostic Data: Laboratory Results Test 09/29/24 07:09 09/28/24 21:28 White Blood Count 5.1 10^3/uL (4.4-10.8) Red Blood Count 2.75 10^6/uL (4.0-5.20) Hemoglobin 8.7 g/dL (12.2-16.2) Hematocrit 26.4 % (36.0-46.0) Mean Corpuscular Volume 96.1 fL (80.0-100.0) Mean Corpuscular Hemoglobin 31.7 pg (28.0-32.0) Mean Corpuscular Hemoglobin Concent 33.0 g/dL (32.0-36.0) Red Cell Distribution Width 19.4 % (11.8-14.3) Platelet Count 288 10^3/uL (140-450) Mean Platelet Volume 8.1 fL (6.9-10.8) Neutrophils (%) (Auto) 73.2 % (37.0-80.0) Lymphocytes (%) (Auto) 19.3 % (10.0-50.0) Monocytes (%) (Auto) 6.4 % (0.0-12.0) Eosinophils (%) (Auto) 0.1 % (0.0-7.0) Basophils (%) (Auto) 1.0 % (0.0-2.0) Neutrophils # (Auto) 3.7 10 ^3/uL (1.6-8.6) Lymphocytes # (Auto) 1.0 10 ^3/uL (0.4-5.4) Monocytes # (Auto) 0.3 10 ^3/uL (0-1.3) Eosinophils # (Auto) 0 10 ^3/uL (0-0.8) Basophils # (Auto) 0 10 ^3/uL (0-0.2) Nucleated Red Blood Cells 0.0 % Sodium Level 138 mmol/L (136-145) Potassium Level 3.6 mmol/L (3.5-5.1) Chloride Level 109 mmol/L (98-107) Carbon Dioxide Level 23 mmol/L (20-31) Anion Gap 6 (5-15) Blood Urea Nitrogen 9 mg/dL (9-23) Creatinine 0.82 mg/dL (0.550-1.02) Glomerular Filtration Rate Calc 82 mL/min (>90) BUN/Creatinine Ratio 11.0 (10.0-20.0) Serum Glucose 108 mg/dL (74-106) Hemoglobin A1c 5.8 % A1C (<5.7) Calcium Level 8.6 mg/dL (8.7-10.4) Lactic Acid Level 1.4 mmol/L (0.4-2.0) Other Laboratory Tests 09/29/24 07:09 Brief Hx & Hospital Course: 58-year-old female with Down syndrome chronically bedridden dementia hypothyroidism burden by family for altered mental status found to have sepsis secondary to urinary tract infection blood cultures negative urine cultures pending treated with Rocephin family decided the patient to take home on hospice. Discharged home on hospice. general condition poor Prescription for Cipro transmitted to the pharmacy Consults/Reason for consult None Operations or Procedures None Condition at Discharge: Fair Final Diagnosis/Problems List Sepsis secondary to urinary tract infection: Blood cultures negative, urine cultures pending Acute urinary tract infection: Rocephin Hypothyroidism: Synthroid History of down syndrome Dementia Chronically bedridden Discharge Disposition: Hospice - Home Discharge Instruct/Medications Diet: Regular Activity: Bed rest Follow Up/Referral: Follow up with the hospice Medications: Cipro Transmitted to pharmacy 35 (Time taken for Discharge summary 35 minutes) Discharge Statement: "Patient was advised to return to the ER or call 911 if any headaches, dizziness, shortness of breath, chest pain, abdominal pain, bleeding, fevers, or worsening of medical condition. Patient was counseled about treatment plan, medications, possible side effects, patientverbalized understanding. All questions were answered to the best of my ability. This discharge took greater then 30 minutes in planning, reviewing documentation, counseling the patient, and discussing with other team members." ASSESSMENT ASSESSMENT Hospital Course No significant improvement Assessment Sepsis secondary to urinary tract infection: Blood cultures negative, urine cultures pending Acute urinary tract infection: Rocephin Hypothyroidism: Synthroid History of down syndrome Dementia Chronically bedridden Date of Service: Oct 01, 2024 Billing Provider: CHEO MORAES MD Common Visit Codes: 21209-NFN/OBS DISCH DAY >30min CHEO MORAES MD Oct 01, 2024 09:29
[2024-10-01 11:44] VITALS: BP 91/42; PULSE 55; RESP 17; TEMP 98.3; O2SAT 90
[2024-10-01 13:14] VITALS: BP 91/42; PULSE 55; RESP 17; TEMP 98.3; O2SAT 90
== END 2024-10-01 14:43 | disposition home or self-care (01) | DRG 720 ==
LOC: ER 17:26 → EDBD 17:26 → EDUNIT# 17:26 → OVERFLOW 21:41 → EAST 21:44 → WEST WING 23:17 → EAST 09-29 04:43
PROVIDERS: ADMIT Student in an Organized Health Care Education/Training Program; ATTEND Family Medicine
DX: A41.9 Sepsis, unspecified organism (principal); E87.20 Acidosis, unspecified; E44.0 Moderate protein-calorie malnutrition; E03.9 Hypothyroidism, unspecified; D64.9 Anemia, unspecified; E11.65 Type 2 diabetes mellitus with hyperglycemia; F03.90 Unspecified dementia, unspecified severity, without behavioral disturbance, psychotic disturbance, mood disturbance, and anxiety; Z74.01 Bed confinement status; Q90.9 Down syndrome, unspecified; Z83.3 Family history of diabetes mellitus; Z90.49 Acquired absence of other specified parts of digestive tract; Z51.5 Encounter for palliative care; Z68.29 Body mass index [BMI] 29.0-29.9, adult; N30.00 Acute cystitis without hematuria
CPT/HCPCS: 36415; 70450; 74176; 80048; 83036; 83605; 85025; 87040; G0378